=== PATIENT | male | born 1955 | race Caucasian/White ===

== ENCOUNTER → 2020-02-28 | Outpatient (REF) | payer MEDICARE | LOC: M SMT 14:04 | PROVIDERS: ATTEND Urology | DX: C61 Malignant neoplasm of prostate (principal) | CPT/HCPCS: 88108; G0463 ==

== ENCOUNTER → 2020-03-18 | Outpatient (REF) | payer MEDICARE | LOC: M SMT 17:22 | PROVIDERS: ATTEND Urology | DX: C67.9 Malignant neoplasm of bladder, unspecified (principal) ==

== ENCOUNTER 2020-04-20 06:17 | Day surgery (SDC) | payer MEDICARE ==
[~2020-04-20] VITALS: Ht 190.5 cm; Wt 103.4 kg
[~2020-04-20 06:17] MED LIST: ATOR40TA75 PO; DILT90TA PO; DOFE500C PO; DULO1CAP5 PO; HUMU70IN SC; HUMU70IN SQ; LEVO150T7 PO; LOSA25TA14 PO; MAGN250T7 PO; METF10004 PO; METO1TAB7 PO; PANT40TA29 PO; SYMB16INH INH; TAMS1CAP17 PO; VITA250T4 PO; XARE20TA PO
[2020-04-20] MEDS ORDERED: DEXTROSE 50% 50 ML SYRINGE As Ordered ONE (07:07)
[2020-04-20] MEDS ORDERED: ceFAZolin 2 GM/D5W 50 ML IV BAG (J0690 PER 500MG) As Ordered ONE (07:07)
[2020-04-20] MEDS ORDERED: LR 1,000 ML IV ONE (07:15)
[2020-04-20] MEDS ORDERED: DEXTROSE 50% 50 ML SYRINGE IV ONE ×2 (07:15)
[2020-04-20] MEDS ORDERED: LIDOCAINE 2% 100MG/5ML SDV (FOR ANES.) As Ordered ONE (07:16)
[2020-04-20] MEDS ORDERED: SUCCINYLCHOLINE 100 MG/5 ML SYRINGE (J0330) As Ordered ONE (07:16)
[2020-04-20] MEDS ORDERED: propofoL 200 MG/20 ML VIAL As Ordered ONE (07:16)
[2020-04-20] MEDS ORDERED: ROCURONIUM BROMIDE 50 MG/5 ML VIAL As Ordered ONE (07:16)
[2020-04-20] MEDS ORDERED: MIDAZOLAM INJ 2MG/2ML VIAL (J2250 PER 1MG) As Ordered ONE (07:17)
[2020-04-20] MEDS ORDERED: fentaNYL 100 MCG/2 ML INJECTION (J3010) As Ordered ONE (07:19)
[2020-04-20] MEDS ORDERED: ceFAZolin SOD 2 GM in IV 1 EA IV ONE (07:30)
[2020-04-20] MEDS ORDERED: D5W/0.45% SODIUM CHLORIDE 1,000 ML IV SCH (07:45)
[2020-04-20] MEDS ORDERED: ETOMIDATE INJ 20MG/10ML VIAL As Ordered ONE (08:17)
[2020-04-20] MEDS ORDERED: dexameTHASONE 4 MG/ML 1ML VIAL (J1100 PER 1MG) As Ordered ONE (08:18)
[2020-04-20] MEDS ORDERED: ONDANSETRON 4MG/2ML VIAL As Ordered ONE (08:18)
[2020-04-20] MEDS ORDERED: SUGAMMADEX SODIUM 500 MG/5 ML VIAL (BRIDION) As Ordered ONE (09:37)
--- NOTE | 2020-04-20 09:55 | ROOPDOC ---
[facility] Report Of Operation Report of Operation DATE OF PROCEDURE: 04/20/20 PREPROCEDURE DIAGNOSES: Urethral stricture and history of bladder cancer POSTPROCEDURE DIAGNOSES: Same PROCEDURE: Cystoscopy, visual urethrotomy, urethral dilation and surveillance cystoscopy SURGEON: Arthur Younger MD [employer] SAL[employer] CONSULTANT: None ANESTHESIA: Gen. ESTIMATED BLOOD LOSS: Approximately mL. COMPLICATIONS: None REMARKS: No evidence of recurrent bladder cancer PROCEDURE NOTE: Patient was brought to the operating room for surveillance cystoscopy because of a tight urethral stricture that would not allow passage of cystoscope. DESCRIPTION OF PROCEDURE: The patient is placed on the table in the supine position, given general anesthesia, placed in lithotomy position, prepped with Betadine paint, draped in an aseptic manner and timeout was performed. A 21 [place]i cystoscope was then inserted into the meatus and advanced under direct vision of a 30 lens to the bulbous urethra where there was noted to be a tight stricture that would not allow passage. The scope would not pass through the stricture. The cystoscope was then exchanged for a urethrotome and the stricture was incised at the 3, 9 and 12:00 positions. Amplatz dilators were then used over a wire to dilate the stricture to 24 [place]i. Cystoscope was then advanced easily into the bladder. The patient was noted to have some diverticuli, but no evidence of tumor recurrence. The cystoscope was then removed after placing a wire into the bladder and a Ambler catheter 20 [place]i in size was advanced over the wire into the bladder and the balloon was inflated with 10 mL of water. The catheter was connected to closed drainage. The patient was then awakened and sent to recovery room in stable condition having tolerated the procedure well. The patient will have the catheter removed in 2 weeks in the office. ARTHUR YOUNGER MD Apr 20, 2020 09:55
[2020-04-20] MEDS ORDERED: fentaNYL 100 MCG/2 ML INJECTION (J3010) IV PRN (10:30)
[2020-04-20] MEDS ORDERED: oxyCODONE 5MG TAB PO PRN (10:30)
[2020-04-20] MEDS ORDERED: ONDANSETRON 4MG/2ML VIAL IV PRN (10:30)
[2020-04-20] MEDS ORDERED: LR 1,000 ML IV SCH ×2 (10:30)
[2020-04-20 11:25] VITALS: BP 117/67
[2020-04-20] MEDS ORDERED: IBUPROFEN 600MG TAB PO SCH (12:00)
== END 2020-04-20 11:25 | disposition home or self-care (01) ==
LOC: M SDC 06:17
PROVIDERS: ATTEND Urology
DX: N35.919 Unspecified urethral stricture, male, unspecified site (principal); Z85.51 Personal history of malignant neoplasm of bladder; E11.9 Type 2 diabetes mellitus without complications; I10 Essential (primary) hypertension; I48.91 Unspecified atrial fibrillation; E03.9 Hypothyroidism, unspecified; K21.9 Gastro-esophageal reflux disease without esophagitis; F17.218 Nicotine dependence, cigarettes, with other nicotine-induced disorders; Z88.8 Allergy status to other drugs, medicaments and biological substances; J44.9 Chronic obstructive pulmonary disease, unspecified; Z79.01 Long term (current) use of anticoagulants; Z79.899 Other long term (current) drug therapy; Z79.4 Long term (current) use of insulin; E78.5 Hyperlipidemia, unspecified
CPT/HCPCS: 36415; 52276; 84132; J0330; J0690; J1100; J2250; J2405; J3010

== ENCOUNTER → 2020-11-24 | Outpatient (REF) | payer MEDICARE ==
[~2020-11-24] MED LIST changes: +ELIQ5TAB PO
== END ==
LOC: M SMT 18:43
PROVIDERS: ATTEND Urology
DX: C67.9 Malignant neoplasm of bladder, unspecified (principal)

== ENCOUNTER 2021-01-06 09:45 | Day surgery (SDC) | payer MEDICARE ==
[~2021-01-06] VITALS: Ht 190.5 cm; Wt 99.3 kg
[~2021-01-06 09:45] MED LIST changes: +LR 1,000 ML IV ONE; +ceFAZolin SOD 2 GM in IV 1 EA IV ONE
[2021-01-06] MEDS ORDERED: ROCURONIUM BROMIDE 50 MG/5 ML VIAL As Ordered ONE ×2 (10:20→11:37)
[2021-01-06] MEDS ORDERED: MIDAZOLAM INJ 2MG/2ML VIAL (J2250 PER 1MG) As Ordered ONE (10:20)
[2021-01-06] MEDS ORDERED: propofoL 200 MG/20 ML VIAL As Ordered ONE (10:20)
[2021-01-06] MEDS ORDERED: fentaNYL 100 MCG/2 ML INJECTION (J3010) As Ordered ONE ×2 (10:20→11:34)
[2021-01-06] MEDS ORDERED: LIDOCAINE 2% 100MG/5ML SDV (FOR ANES.) As Ordered ONE (10:20)
[2021-01-06] MEDS ORDERED: mitoMYcin 40MG VIAL *UROLOGY* (J9280 PER 5MG) INTRAVESIC ONE (10:30)
[2021-01-06] MEDS ORDERED: ceFAZolin 2 GM/D5W 50 ML IV BAG (J0690 PER 500MG) As Ordered ONE (11:34)
[2021-01-06] MEDS ORDERED: ONDANSETRON 4MG/2ML VIAL As Ordered ONE (11:46)
[2021-01-06] MEDS ORDERED: SUGAMMADEX SODIUM 500 MG/5 ML VIAL (BRIDION) As Ordered ONE (11:56)
[2021-01-06] MEDS ORDERED: PERCOCET 5MG/325MG TAB PO PRN (12:30)
[2021-01-06] MEDS ORDERED: LR 1,000 ML IV SCH (12:30)
[2021-01-06] MEDS ORDERED: ONDANSETRON 4MG/2ML VIAL IV PRN (12:30)
[2021-01-06] MEDS ORDERED: fentaNYL 100 MCG/2 ML INJECTION (J3010) IV PRN (12:30)
[2021-01-06] MEDS ORDERED: ALBUTEROL SULFATE 2.5 MG/0.5 ML INH NEB SOLN INH ONE (12:35)
--- NOTE | 2021-01-06 13:59 | RO ---
OPERATIVE NOTE DATE OF OPERATION: 01/06/2021 PREOPERATIVE DIAGNOSIS: Bladder cancer. POSTOPERATIVE DIAGNOSIS: Bladder cancer. PROCEDURE: Cystoscopy; transurethral resection of bladder tumor (between 2 and 5 cm); intravesical Mitomycin C instillation. SURGEON: Matt Chavez MD BEAUTY ARTIST: None. ANESTHESIA: General. OPERATIVE INDICATIONS: This is a 65-year-old male with history of bladder cancer who was recently found to have recurrent bladder tumors on recent office cystoscopy. He is brought to the operating room today for treatment. DESCRIPTION OF PROCEDURE: The patient was brought to the operating room and general anesthesia was induced. Prophylactic antibiotics were infused. He was placed in the dorsal lithotomy position and prepped and draped in usual sterile fashion. A resectoscope was inserted in the urethral meatus and advanced into the bladder using visual obturator. The bladder was then thoroughly examined. Both ureteral orifices were orthotopic and effluxed clear urine. At the level of the bladder neck and just inside the prostatic urethra a little bit there was a collection of papillary tumors seen. There were also some other suspicious areas inside the bladder. The tumors at the bladder neck were then resected using bipolar loop. The other areas inside the bladder were fulgurated using coagulation current. Once done the area of resection was also cauterized with coagulation current until there was good hemostasis. Once satisfied all tumors were removed, specimen was sent for pathologic analysis. Resectoscope was removed and 18-Welsh three-way catheter was inserted into the bladder. The balloon was filled with 30 mL of sterile water. At this point I hooked the irrigation port up to saline and that was clamped off. Through the main output port I then instilled 40 mg of Mitomycin C into the patient's bladder. This was reconstituted in sterile water. Once that was inserted into the bladder a catheter plug was then placed inside that output port. This marked the conclusion of the procedure. The patient was then taken out of the dorsal lithotomy position, awakened from anesthesia and transported to the recovery room in stable condition. ESTIMATED BLOOD LOSS: 5 mL. COMPLICATIONS: None. SPECIMEN: Bladder tumors. PLAN: The patient will keep the Mitomycin C in his bladder for an hour while in the recovery room. We will then let it drain out. He will be discharged home with catheter with plan for him to follow up in urology clinic in one week for catheter removal and to discuss his pathology results.
[2021-01-06 14:35] VITALS: BP 144/79
== END 2021-01-06 14:40 | disposition home or self-care (01) ==
LOC: M SDC 09:45
PROVIDERS: ATTEND Urology
DX: C67.5 Malignant neoplasm of bladder neck (principal); E11.43 Type 2 diabetes mellitus with diabetic autonomic (poly)neuropathy; I10 Essential (primary) hypertension; J44.9 Chronic obstructive pulmonary disease, unspecified; M54.59 Other low back pain; I48.0 Paroxysmal atrial fibrillation; E03.9 Hypothyroidism, unspecified; E78.5 Hyperlipidemia, unspecified; K21.9 Gastro-esophageal reflux disease without esophagitis; M19.90 Unspecified osteoarthritis, unspecified site; R06.02 Shortness of breath; Z85.46 Personal history of malignant neoplasm of prostate; F17.210 Nicotine dependence, cigarettes, uncomplicated; Z88.8 Allergy status to other drugs, medicaments and biological substances; Z79.899 Other long term (current) drug therapy; Z79.01 Long term (current) use of anticoagulants; Z79.4 Long term (current) use of insulin; Z79.51 Long term (current) use of inhaled steroids
CPT/HCPCS: 51720; 52235; 88305; J0690; J2250; J2405; J3010; J9280

== ENCOUNTER → 2021-04-27 | Outpatient (REF) | payer MEDICARE ==
[~2021-04-27] MED LIST changes: +LOSA25TA13 PO; -LOSA25TA14 PO; -LR 1,000 ML IV ONE; -ceFAZolin SOD 2 GM in IV 1 EA IV ONE
== END ==
LOC: M SMT 17:24
PROVIDERS: ATTEND Urology
DX: C67.9 Malignant neoplasm of bladder, unspecified (principal)

== ENCOUNTER → 2021-08-20 | Outpatient (REF) | payer MEDICARE | LOC: M SMT 17:13 | PROVIDERS: ATTEND Urology | DX: C67.9 Malignant neoplasm of bladder, unspecified (principal) ==

== ENCOUNTER → 2022-01-07 | Outpatient (REF) | payer MEDICARE | LOC: M SMT 16:49 | PROVIDERS: ATTEND Urology | DX: C67.9 Malignant neoplasm of bladder, unspecified (principal) ==

== ENCOUNTER → 2022-08-16 | Outpatient (REF) | payer MEDICARE | LOC: M SMT 17:32 | PROVIDERS: ATTEND Urology | DX: C67.9 Malignant neoplasm of bladder, unspecified (principal) ==

== ENCOUNTER 2022-09-21 06:30 | Day surgery (SDC) | payer MEDICARE ==
[~2022-09-21] VITALS: Ht 190.5 cm; Wt 96.2 kg
[~2022-09-21 06:30] MED LIST changes: +BREO1INH INH; +LEVO125T4 PO; +LR 1,000 ML IV SCH; +PREG75CA2 PO
[2022-09-21] MEDS ORDERED: ceFAZolin SOD 2 GM in IV 1 EA IV ONE (06:40)
[2022-09-21] MEDS ORDERED: ONDANSETRON 4MG 2ML VIAL As Ordered ONE (06:49)
[2022-09-21] MEDS ORDERED: KETOROLAC 60MG 2ML VIAL As Ordered ONE (06:49)
[2022-09-21] MEDS ORDERED: ROCURONIUM BROMIDE 50MG/5ML VIAL As Ordered ONE (06:49)
[2022-09-21] MEDS ORDERED: ACETAMINOPHEN 1000MG 100ML IV BAG As Ordered ONE (06:49)
[2022-09-21] MEDS ORDERED: LIDOCAINE 2% 100MG/5ML SDV (FOR ANES.) As Ordered ONE (06:49)
[2022-09-21] MEDS ORDERED: propofoL 200 MG/20 ML VIAL As Ordered ONE (06:50)
[2022-09-21] MEDS ORDERED: SUGAMMADEX SODIUM 500 MG/5 ML VIAL (BRIDION) As Ordered ONE (06:50)
[2022-09-21] MEDS ORDERED: MIDAZOLAM INJ 2MG/2ML VIAL As Ordered ONE (06:55)
[2022-09-21] MEDS ORDERED: fentaNYL 100 MCG/2 ML INJECTION As Ordered ONE (06:55)
[2022-09-21] MEDS ORDERED: LIDOCAINE 1% SDV 30ML VIAL As Ordered ONE (07:19)
[2022-09-21] MEDS ORDERED: VASOPRESSIN INJ 20UNITS/ML 1ML VIAL As Ordered ONE (08:08)
[2022-09-21] MEDS ORDERED: HYDROmorphone HCL 2MG/ML 1ML VIAL As Ordered ONE (08:22)
[2022-09-21] MEDS ORDERED: LR 1,000 ML IV SCH (09:40)
[2022-09-21] MEDS ORDERED: ONDANSETRON 4MG 2ML VIAL IV PRN (09:40)
[2022-09-21] MEDS ORDERED: CIPR-249 PO (10:14)
[2022-09-21] MEDS ORDERED: OXYC1TAB23 PO (10:14)
[2022-09-21] MEDS ORDERED: INSULIN LISPRO (NovoLOG) PER UNIT SC PRN ×2 (10:15→11:35)
[2022-09-21] MEDS ORDERED: PERCOCET 5MG/325MG TAB PO PRN (10:25)
[2022-09-21] MEDS: fentaNYL 100 MCG/2 ML INJECTION IV PRN ×4 (10:29→10:55)
[2022-09-21] MEDS: oxyCODONE 5MG TAB PO PRN ×2 (10:44→11:25)
[2022-09-21] MEDS: HYDROMORPHONE HCL 0.5 MG/ 0.5 ML SYRINGE IV PRN ×2 (11:10→11:21)
[2022-09-21 12:45] VITALS: BP 129/69; TEMP 96.9; O2SAT 95
[2022-09-22] MEDS ORDERED: PERC5TAB12 PO (12:00)
[2022-09-22] MEDS ORDERED: CIPR-249 PO (12:00)
== END 2022-09-21 12:45 | disposition home or self-care (01) ==
LOC: M SDC 06:30
PROVIDERS: ATTEND Urology
DX: N32.0 Bladder-neck obstruction (principal); I10 Essential (primary) hypertension; I48.91 Unspecified atrial fibrillation; E11.9 Type 2 diabetes mellitus without complications; E03.9 Hypothyroidism, unspecified; K21.9 Gastro-esophageal reflux disease without esophagitis; F41.9 Anxiety disorder, unspecified; F32.A Depression, unspecified; J44.9 Chronic obstructive pulmonary disease, unspecified; M19.90 Unspecified osteoarthritis, unspecified site; M54.50 Low back pain, unspecified; F17.210 Nicotine dependence, cigarettes, uncomplicated; Z88.8 Allergy status to other drugs, medicaments and biological substances; Z79.899 Other long term (current) drug therapy; Z79.51 Long term (current) use of inhaled steroids; Z79.01 Long term (current) use of anticoagulants; Z79.890 Hormone replacement therapy; Z79.84 Long term (current) use of oral hypoglycemic drugs
CPT/HCPCS: 36415; 51040; 86850; 86900; 86901; J0131; J0690; J1100; J1170; J1815; J1885; J2250; J2405; J3010

== ENCOUNTER → 2023-02-20 | Outpatient (REF) | payer MEDICARE ==
[~2023-02-20] MED LIST changes: +CIPR-249 PO; -LR 1,000 ML IV SCH; +OXYC1TAB23 PO; +PERC5TAB12 PO; -PREG75CA2 PO; +PREG75CA3 PO
== END ==
LOC: M SMT 16:55
PROVIDERS: ATTEND Urology
DX: C67.9 Malignant neoplasm of bladder, unspecified (principal)